=== PATIENT | male | born 1975 | race Caucasian/White ===

== ENCOUNTER → 2024-03-08 06:16 | Day surgery (SDC) | payer OTHER, SELFPAY | LOC: GI 06:16 | PROVIDERS: ATTENDING PHYSICIAN Internal Medicine | DX: Z12.11 Encounter for screening for malignant neoplasm of colon (principal); K64.8 Other hemorrhoids | CPT/HCPCS: G0121 ==

== ENCOUNTER → 2024-04-26 18:57 | Outpatient (REF) | payer OTHER, SELFPAY | LOC: RAD 18:57 | PROVIDERS: ATTENDING PHYSICIAN Family Medicine | DX: M25.552 Pain in left hip (principal) | CPT/HCPCS: 73523 ==

== ENCOUNTER 2024-08-14 06:33 | Outpatient (RCR) | payer OTHER, SELFPAY | END 2024-08-14 09:07 | disposition home or self-care (01) | LOC: RPT 06:33 | PROVIDERS: ATTENDING PHYSICIAN Nurse Practitioner Family | DX: M25.552 Pain in left hip (principal); Z73.6 Limitation of activities due to disability; R26.89 Other abnormalities of gait and mobility; M62.81 Muscle weakness (generalized) | CPT/HCPCS: 97110; 97112; 97140; 97161; 97530 ==

== ENCOUNTER → 2025-06-27 15:58 | Outpatient (REF) | payer OTHER, SELFPAY | LOC: REG 15:58 | PROVIDERS: ATTENDING PHYSICIAN Nurse Practitioner Family | DX: M67.479 Ganglion, unspecified ankle and foot (principal) | CPT/HCPCS: 73630 ==